=== PATIENT | male | born 1960 | race Two or more races ===

== ENCOUNTER 2021-02-14 12:19 | Emergency (ER) | payer BC ==
[~2021-02-14] VITALS: Ht 170.2 cm; Wt 76.2 kg
[2021-02-14] MEDS ORDERED: MICARDIS80 MG (12:44)
[2021-02-14] MEDS ORDERED: NEXIUM40 M1 (12:44)
[2021-02-14] MEDS ORDERED: FAMOTIDINE40 MG (12:44)
== END 2021-02-14 14:42 | disposition home or self-care (01) ==
LOC: ER 12:19
DX: H10.211 Acute toxic conjunctivitis, right eye (principal)